=== PATIENT | male | born 1955 | race Caucasian/White ===

== ENCOUNTER 2018-10-14 09:57 | Observation (INO) ==
[2018-10-14] MEDS: NITROGLYCERIN 0.4 MG/TAB BTL SL PRN ×2 (10:18→10:27)
--- NOTE | 2018-10-14 10:23 | ERNOTE ---
Chest Pain/Cardiac HPI Date of Service: 10/14/18 Chief Complaint: Chest Pain Time Seen by Provider: 10/14/18 10:05 Source: patient Exam Limitations: no limitations Immunizations: IMMUNIZATION HX Immunizations Up to Date Yes History of Influenza Vaccine Yes Hx Pneumococcal Vaccination Yes Allergies/Adverse Reactions: Allergies morphine Allergy (Intermediate, Verified 10/14/18 13:02) Hives piroxicam [From Feldene] Adverse Reaction (Intermediate, Verified 10/14/18 13:02) Other keeps me awake Home Medications: HOME MEDICATIONS Multivitamin [Multivitamins] 1 ea PO DAILY 08/14/12 [Last Taken 02/23/18 05:30] Albuterol Sulfate [Proair Hfa] 1 - 2 puff IH Q4H PRN #1 inhaler 04/30/15 [Last Taken Unknown] Cetirizine HCl [Zyrtec] 10 mg PO DAILY PRN 10/01/17 [Last Taken 02/23/18 17:30] fenofibrate micronized 134 mg capsule 134 mg PO DAILY #90 cap 04/15/18 [Last Taken Unknown] pravastatin 10 mg tablet 10 mg PO DAILY #90 tab 04/15/18 [Last Taken Unknown] levothyroxine 50 mcg tablet 75 mcg PO DAILY #135 tab 08/19/18 [Last Taken Unknow n] lisinopril 10 mg tablet 10 mg PO DAILY #90 tab 08/19/18 [Last Taken Unknown] metformin 1,000 mg tablet 1,000 mg PO BID #90 tab 09/20/18 [Last Taken Unknown] metformin 500 mg tablet 250 mg PO BID #45 tab 09/20/18 [Last Taken Unknown] Albuterol Sulfate/Ipratropium [Duoneb 2.5-0.5MG/3ML Soln] 3 ml INHALATION PRN PRN 10/14/18 [Last Taken Unknown] Ibuprofen [Motrin] 600 mg PO BID PRN 10/14/18 [Last Taken Unknown] Aspirin [Aspirin EC] 81 mg PO DAILY #30 tablet.dr 10/15/18 [Last Taken Unknown] Glimepiride [Amaryl] 4 mg PO BID@0700,1700 #30 tab 10/15/18 [Last Taken Unknown] Metoprolol Succinate 25 mg PO DAILY #30 tab.er.24h 10/15/18 [Last Taken Unknown] Nitroglycerin [Nitrostat] 0.4 mg SUBLINGUAL Q5MIN PRN #10 btl 10/15/18 [Last Taken Unknown] Pain Score #1 Pain Score: 8 Narrative: The patient is a 63 year old male who presents for left anterior chest pressure which has been present since 0900. There are associated symptoms of lightheadedness and diaphoresis. The patient reports left anterior chest pressure, 8/10 There are no alleviating factors. There are no aggravating factors. Previous treatments have included: patient received Nitro x1 and Aspirin 81mg x4 via EMS. The past medical history includes: DM, HLD, hypothyroid, heart disease and osteoarthritis. The social history is negative. The patient has had no ill contacts. Patient states he was sitting at his computer at work when he developed left anterior chest pressure with radiation to left arm. Patient states that with the pain he also became diaphoretic with mild shortness of breath. Patient states that pressure had began to improve upon arrival of EMS. Nitro x1 was administered via EMS which patient reports aided with resolution of chest pressure. During exam patient reports pressure to be returned to left anterior chest, 8/10. Location: left chest Chest Pain Radiation: arms - left Activities at Onset: other - sitting at work station, denies increased stress Modifying Factors - Improves: Present: nitroglycerin Modifying Factors - Worsens: Present: nothing Nitro Today/Relief: 0.4 mg x 1, provided by EMS Aspirin Treatment Today: 81 mg x 4, provided by EMS Associated Symptoms: Present: dizziness, shortness of breath, diaphoresis. Absent: fever/chills, nausea, vomiting Prior Chest Pain/Cardiac Workup: Reports: prior chest pain, cardiac cath - 18 years ago Review of Systems - Review of Systems Constitutional: Present: no symptoms reported. Absent: fever, fatigue EYE: Present: no symptoms reported ENT: Present: no symptoms reported. Absent: ear pain, nasal drainage, sore throat Respiratory: Present: shortness of breath. Absent: cough Cardiology: Present: chest pain. Absent: edema Gastrointestinal/Abdominal: Present: no symptoms reported. Absent: nausea, vomiting, diarrhea, abdominal pain Genitourinary: Present: no symptoms reported. Absent: dysuria Musculoskeletal: Present: no symptoms reported. Absent: back pain Skin: Present: no symptoms reported. Absent: rash Neurological: Present: dizziness/light-headedness. Absent: numbness Endocrine: Present: no symptoms reported Hematologic/Lymphatic: Present: no symptoms reported Psych: Present: no symptoms reported All Other Systems: All systems neg except as marked Medical History (Last Reviewed 10/14/18 @ 10:17 by CHRISTIE San) Osteoarthritis (Chronic) Onset Date: Unknown Obesity (Chronic) Onset Date: Unknown Ischemic heart disease (Chronic) Onset Date: Unknown Hypothyroidism (Chronic) Onset Date: Unknown Hyperlipidemia (Chronic) Onset Date: Unknown Ganglion (Chronic) Onset Date: Unknown left index finger Foot injury (Chronic) Onset Date: Unknown Foot fracture (Acute) Onset Date: Unknown closed Diverticulitis (Chronic) Onset Date: Unknown Diabetes 1.5, managed as type 2 (Chronic) Onset Date: Unknown Colonic polyp (Chronic) Onset Date: ~07/2007 tubular adenoma X2 Chest pain (Chronic) Onset Date: Unknown Cerumen impaction (Chronic) Onset Date: Unknown Surgical History: Surgical History (Last Reviewed 10/14/18 @ 10:17 by CHRISTIE San) History of total knee arthroplasty (Resolved) Onset Date: ~05/16/13 07/26/13 [facility] Left;Right H/O hernia repair (Resolved) Onset Date: ~1977 right Inguinal hernia History of cardiac cath (Resolved) Onset Date: ~2005 [facility] Normal H/O colonoscopy (Resolved) Onset Date: ~2001 With Biopsy 08/13; 07 [facility] tubular adenoma x2 H/O colonoscopy (Resolved) Onset Date: ~03/18/12 Tinguely; scattered sigmoid diverticulosis. Recheck 10 years History of cervical spinal surgery (Resolved) Onset Date: ~03/2010 [facility] C5-C6 H/O knee surgery (Resolved) Onset Date: ~2002 1998 1992; Arthroscopic, Right Knee History of appendectomy (Resolved) Onset Date: ~1965 H/O coronary angiogram (Resolved) Onset Date: ~2005 [facility] Family History: Family History (Last Reviewed 10/14/18 @ 10:18 by CHRISTIE San) Father , age 73 Emphysema of lung Mother , age 52 Cancer Lung Diabetes Sister , age 55 Cancer Lung Diabetes Social History: Preferred Language Tajik Do you have any catholic or Yes: Jainism cultural preference? Smoking Status Never smoker Have you smoked in the past 12 No months Do you dip or chew tobacco No Abuse History No History of abuse Psych History No pertinent hx Alcohol Use occasionally Drug Use none (Last Updated 08/16/18 @ 15:33 by Paco Elizabeth MD) No Social History Section defined Physical Exam - Physical Exam General Appearance: Present: wd/wn, alert, no apparent distress Head Exam: Present: normal inspection Eye Exam: Normal inspection: bilateral Neck: Present: normal inspection, nontender. Absent: carotid bruit Respiratory: Present: no respiratory distress, normal breath sounds, no accessory muscle use, chest nontender, lungs clear Cardiovascular/Chest: Present: regular rate, rhythm, no murmur Peripheral Pulses: N=norm/S=strong/W=weak/B=bound/A=absent: Radial (R): Normal Gastrointestinal/Abdominal: Present: normal bowel sounds, nontender, nondistended, soft, no organomegaly Neurological Exam: Present: alert, oriented, normal mood/affect Skin Exam: Present: normal color, warm/dry Progress - Date and Time Seen: Date and Time: 10/13/18 Case discussed with . Patient will be admitted observation chest pain due to comorbid risk factors and persistent intermittent chest pain with diaphoresis and nausea upon onset. - Results and Orders Patient's Lab Results:: I have reviewed the patient's lab results. - Vital Signs Patient's Vital Signs:: I have reviewed the patient's vital signs. Vital Signs: Vital Signs 10/14/18 10:04 Temperature 35.9 C L Pulse Rate 72 Respiratory Rate 15 Blood Pressure 129/78 O2 Sat by Pulse Oximetry 96 - EKG EKG #1 EKG: NSR EKG read: Reviewed by me - X-Ray X-Ray #1 X-Ray: chest Interpretation: Reviewed by me X-ray Comments: X-RAY REPORT [id number] RAD/Chest PA & Lateral *~ Exam Date: 10/14/2018 10:12 Ordering Physician: Luisa SORIANO HISTORY: Chest Pain. Additional history from technologist: left arm pain and chest pressure started at 0900 today; history of heart cath TECHNIQUE: PA and lateral views of the chest were obtained. 2 images. COMPARISONS: 07/12/2018 FINDINGS: Chest PA Lateral * Hypoinflated lung volumes. Bibasilar linear opacities are noted. No significant vascular congestion suggested. No pneumothorax or pleural fluid collections. Cardiac silhouette within normal limits. Moderate tortuosity of the thoracic aorta noted, with overlying atherosclerotic vascular calcifications. Overall stable. Trachea is in normal position. Bones show degenerative changes of the spine. IMPRESSION: 1. Hypoventilatory changes, with bibasilar atelectasis. Potential underlying pneumonia would be difficult to exclude. Clinical correlation is advised. Consider imaging follow-up (e.g. 6-8 weeks). 2. Otherwise no definite acute findings are noted. Electronically signed by Torsten Martins M.D.. - Progress/Reassessment Chief Complaint: Chest Pain Departure Clinical Impression: Chest pain Qualifiers: Chest pain type: unspecified Qualified Code(s): R07.9 - Chest pain, unspecified - Departure Disposition: Still a patient Condition: Fair
[2018-10-14 10:28] LABS: Hemoglobin 12.7 gm/dL (13.5-18.0); Mean Cell Volume 87.5 fl (78-100); Mean Corpuscular Hgb Conc 34.3 g/dl (32-36); Mean Platelet Volume 8.9 fl (8-11.3); Neutrophil # 3.6 K/mm3 (1.3-6.0); Neutrophil % 64.6 % (42-75.0); Platelet Count 198 K/mm3 (150-450); Red Blood Count 4.23 M/mm3 (4.7-6.0); White Blood Count 5.6 K/mm3 (4.0-10.5)
[2018-10-14 10:38] LABS: Prothrombin Time (Patient) 9.9 Seconds (9.0-11.0)
[2018-10-14 10:44] LABS: ALT 38 U/L (19-67); AST 15 U/L (0-48); Albumin * 3.8 gm/dl (3.4-5.0); Alkaline Phosphatase * 97 U/L (50-170); BUN/Creatinine Ratio 21.3 (9.0-21.6); Bilirubin, Total 1.4 mg/dL (0.0-1.1); Blood Urea Nitrogen 19 mg/dL (6-23); Ca. Corrected For Albumin 8.6 mg/dL (8.4-10.2); Calcium * 8.8 mg/dL (7.9-10.9); Carbon Dioxide 23.2 mmol/L (24-32.6); Chloride 103 mmol/L (97-106); Glucose * 207 mg/dL (70-110); INR 0.99 INR (0.90-1.10); Partial Thrombolplastin Time 26.5 Seconds (24-32); Potassium 4.2 mmol/L (3.4-4.6); Sodium 137 mmol/L (132-142); Total Protein 7.1 gm/dL (6.2-8.2)
[2018-10-14 10:45] LABS: Troponin I Less than 0.017 ng/mL (0.00-0.10)
[2018-10-14] MEDS ORDERED: HYDROmorphone HCL 1 MG/ML DISP.SYRIN IV ONE (11:21)
--- NOTE | 2018-10-14 12:58 | HP ---
Chief Complaint - Chief Complaint Date of Service: 10/14/18 Time of Service: 12:52 Chief Complaint: chest pain History of Present Illness: Bertrand Bonner, is a 63-year-old white male with past medical history of diabetes mellitus type 2, hyperlipidemia, hypothyroidism, who was admitted on 10/14/2018 for chest pain. 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 He described the pain as someone sitting on his chest. It lasted for about 15 minutes and by the time he got to the emergency room it started dissipating. He got nitroglycerin and aspirin in the emergency room. His first set of troponin was negative at less done 0.017 and his first EKG showed normal sinus rate him with no ST T wave changes. His chest x-ray showed bibasilar atelectasis but potential underlying pneumonia cannot be ruled out. The patient hasn't had no symptoms since and symptoms of respiratory tract problems and his white blood cell count is normal. The patient was then admitted for further observation on under our chest pain protocol. Medical History (Last Reviewed 10/14/18 @ 13:00 by Annabel Roy RN) Osteoarthritis (Chronic) Onset Date: Unknown Obesity (Chronic) Onset Date: Unknown Ischemic heart disease (Chronic) Onset Date: Unknown Hypothyroidism (Chronic) Onset Date: Unknown Hyperlipidemia (Chronic) Onset Date: Unknown Ganglion (Chronic) Onset Date: Unknown left index finger Foot injury (Chronic) Onset Date: Unknown Foot fracture (Acute) Onset Date: Unknown closed Diverticulitis (Chronic) Onset Date: Unknown Diabetes 1.5, managed as type 2 (Chronic) Onset Date: Unknown Colonic polyp (Chronic) Onset Date: ~07/2007 tubular adenoma X2 Chest pain (Acute) Onset Date: Unknown Cerumen impaction (Chronic) Onset Date: Unknown Surgical History: Surgical History (Last Reviewed 10/14/18 @ 13:00 by Annabel Roy RN) History of total knee arthroplasty (Resolved) Onset Date: ~05/16/13 07/26/13 [facility] Left;Right H/O hernia repair (Resolved) Onset Date: ~1977 right Inguinal hernia History of cardiac cath (Resolved) Onset Date: ~2005 [facility] Normal H/O colonoscopy (Resolved) Onset Date: ~2001 With Biopsy 12/07; '07 [facility] tubular adenoma x2 H/O colonoscopy (Resolved) Onset Date: ~03/18/12 Tinguely; scattered sigmoid diverticulosis. Recheck 10 years History of cervical spinal surgery (Resolved) Onset Date: ~03/2010 [facility] C5-C6 H/O knee surgery (Resolved) Onset Date: ~2002 1998 1992; Arthroscopic, Right Knee History of appendectomy (Resolved) Onset Date: ~1965 H/O coronary angiogram (Resolved) Onset Date: ~2005 [facility] Family History: Family History (Last Reviewed 10/14/18 @ 13:02 by Annabel Roy RN) Father , age 73 Emphysema of lung Mother , age 52 Diabetes Cancer Lung Sister , age 55 Diabetes Cancer Lung Grandfather Myocardial infarction Grandmother Diabetes Social History: Preferred Language Maori Do you have any sabianist or Yes: Restoration cultural preference? Smoking Status Never smoker Have you smoked in the past 12 No months Do you dip or chew tobacco No Abuse History No History of abuse Psych History No pertinent hx Alcohol Use occasionally Drug Use none (Last Updated 08/16/18 @ 15:33 by Paco Elizabeth MD) No Social History Section defined Review Of Systems (GEN) - Review of Systems Generalized/Overall Review: Absent: Weakness, Chills, Fever EENTM: Absent: Blurred Vision Respiratory: Absent: Cough, Shortness of Breath, Orthopnea, Wheezing Cardiac: Present: Chest Pain. Absent: Edema, Palpitations Abdominal: Absent: Nausea, Vomiting Genitourinary: Absent: Urgency, Frequency Musculoskeletal: Absent: Joint Pain Neurological: Absent: Headache, Tingling, Weakness Skin: Absent: Rash, Bruising Endocrine: Absent: Intolerance to Cold, Intolerance to Heat Immunizations: IMMUNIZATION HX Immunizations Up to Date Yes History of Influenza Vaccine Yes Hx Pneumococcal Vaccination Yes Allergies/Adverse Reactions: Allergies Allergy/AdvReac Type Severity Reaction Status Date / Time morphine Allergy Intermediate Hives Verified 10/14/18 13:02 piroxicam [From Feldene] AdvReac Intermediate Other Verified 10/14/18 13:02 Home Medications: HOME MEDICATIONS Multivitamin [Multivitamins] 1 ea PO DAILY 08/14/12 [Last Taken 02/23/18 05:30] Albuterol Sulfate [Proair Hfa] 1 - 2 puff IH Q4H PRN #1 inhaler 04/30/15 [Last Taken Unknown] Cetirizine HCl [Zyrtec] 10 mg PO DAILY PRN 10/01/17 [Last Taken 02/23/18 17:30] fenofibrate micronized 134 mg capsule 134 mg PO DAILY #90 cap 04/15/18 [Last Taken Unknown] pravastatin 10 mg tablet 10 mg PO DAILY #90 tab 04/15/18 [Last Taken Unknown] levothyroxine 50 mcg tablet 75 mcg PO DAILY #135 tab 08/19/18 [Last Taken Unknown] lisinopril 10 mg tablet 10 mg PO DAILY #90 tab 08/19/18 [Last Taken Unknown] metformin 1,000 mg tablet 1,000 mg PO BID #90 tab 09/20/18 [Last Taken Unknown] metformin 500 mg tablet 250 mg PO BID #45 tab 09/20/18 [Last Taken Unknown] Albuterol Sulfate/Ipratropium [Duoneb 2.5-0.5MG/3ML Soln] 3 ml INHALATION PRN PRN 10/14/18 [Last Taken Unknown] Glimepiride [Amaryl] 8 mg PO BID@0700,1700 10/14/18 [Last Taken Unknown] Ibuprofen [Motrin] 600 mg PO BID PRN 10/14/18 [Last Taken Unknown] Exam - Exam Vital Signs: Vital Signs - Last Taken Temp 36.4 C 10/14/18 12:35 Pulse 64 10/14/18 12:35 Resp 16 10/14/18 12:35 BP 119/70 10/14/18 12:35 Pulse Ox 95 10/14/18 12:35 Constitutional: Present: Alert, Oriented x3, Cooperative ENT Exam: Present: hearing grossly normal Eye Exam: bilateral eye: normal inspection, PERRL, EOMI Neck: Present: supple Respiratory: Present: normal breath sounds, No rales, No wheezing Cardiovascular/Chest: Present: regular rate, rhythm, no JVD, no murmur Abdomen: Present: Normal bowel sounds, soft, nontender, nondistended Extremity: Present: no pedal edema, no calf tenderness Diagnostic Studies: Abnormal Lab Results 10/14/18 10/14/18 Range/Units 10:24 10:24 RBC 4.23 L (4.7-6.0) M/mm3 Hgb 12.7 L (13.5-18.0) gm/dL Hct 37.0 L (42.0-52.0) % Lymphocytes # 1.33 L (1.5-3.5) k/mm3 Carbon Dioxide 23.2 L (24-32.6) mmol/L Anion Gap 15.0 H (6.8-13.8) mmol/L Random Glucose 207 H (70-110) mg/dL Total Bilirubin 1.4 H (0.0-1.1) mg/dL Laboratory Results WBC 5.6 K/mm3 (4.0-10.5) 10/14/18 10:24 RBC 4.23 M/mm3 (4.7-6.0) L 10/14/18 10:24 Hgb 12.7 gm/dL (13.5-18.0) L 10/14/18 10:24 Hct 37.0 % (42.0-52.0) L 10/14/18 10:24 MCV 87.5 fl (78-100) 10/14/18 10:24 MCH 30.0 pg (27-31) 10/14/18 10:24 MCHC 34.3 g/dl (32-36) 10/14/18 10:24 RDW 14.0 % (11.5-14.0) 10/14/18 10:24 Plt Count 198 K/mm3 (150-450) 10/14/18 10:24 MPV 8.9 fl (8-11.3) 10/14/18 10:24 Immature Gran % (Auto) 0.40 % (0.001-0.429) 10/14/18 10:24 Immature Gran # (Auto) 0.02 K/mm3 (0.000-0.0310) 10/14/18 10:24 Neutrophils % 64.6 % (42-75.0) 10/14/18 10:24 Lymphocytes % 23.8 % (20-51) 10/14/18 10:24 Monocytes % 8.6 % (0.0-9) 10/14/18 10:24 Eosinophils % 2.1 % (0.0-3.0) 10/14/18 10:24 Basophils % 0.5 % (0.0-1.0) 10/14/18 10:24 Nucleated RBC % 0.0 k/mm3 (0-1) 10/14/18 10:24 Neutrophils # 3.6 K/mm3 (1.3-6.0) 10/14/18 10:24 Lymphocytes # 1.33 k/mm3 (1.5-3.5) L 10/14/18 10:24 Monocytes # 0.5 k/mm3 (0.0-1.0) 10/14/18 10:24 Eosinophils # 0.1 k/mm3 (0.0-0.7) 10/14/18 10:24 Absolute Basophils 0.0 k/mm3 (0.0-0.1) 10/14/18 10:24 PT 9.9 Seconds (9.0-11.0) 10/14/18 10:24 INR (Anticoag Therapy) 0.99 INR (0.90-1.10) 10/14/18 10:24 PTT (Mike) 26.5 Seconds (24-32) 10/14/18 10:24 Sodium 137 mmol/L (132-142) 10/14/18 10:24 Plasma Sodium 139 mmol/L (130-142) 10/14/18 10:24 Potassium 4.2 mmol/L (3.4-4.6) 10/14/18 10:24 Chloride 103 mmol/L (97-106) 10/14/18 10:24 Carbon Dioxide 23.2 mmol/L (24-32.6) L 10/14/18 10:24 Anion Gap 15.0 mmol/L (6.8-13.8) H 10/14/18 10:24 BUN 19 mg/dL (6-23) 10/14/18 10:24 Creatinine 0.89 mg/dL (0.4-1.4) 10/14/18 10:24 Est GFR (Non-Af Amer) 91 mL/min (60-130) 10/14/18 10:24 BUN/Creatinine Ratio 21.3 (9.0-21.6) 10/14/18 10:24 Random Glucose 207 mg/dL (70-110) H 10/14/18 10:24 Calcium 8.8 mg/dL (7.9-10.9) 10/14/18 10:24 Calcium Adj for Albumin 8.6 mg/dL (8.4-10.2) 10/14/18 10:24 Total Bilirubin 1.4 mg/dL (0.0-1.1) H 10/14/18 10:24 AST 15 U/L (0-48) 10/14/18 10:24 ALT 38 U/L (19-67) 10/14/18 10:24 Alkaline Phosphatase 97 U/L (50-170) 10/14/18 10:24 Troponin I Less than 0.017 ng/mL (0.00-0.10) 10/14/18 10:24 Total Protein 7.1 gm/dL (6.2-8.2) 10/14/18 10:24 Albumin 3.8 gm/dl (3.4-5.0) 10/14/18 10:24 Assessment/Plan - Narrative Narrative: Will continue with patient's home medications. - Assessment/Plan (1) Chest pain Assessment: will do serial EKG and troponin. If AMI is ruled out, we will discharge him . he just had a pharmacologic stress test in February or March of last year and there was no reversible ischemia. Problem: Acute (2) Hypothyroidism Problem: Chronic Qualifiers: Hypothyroidism type: acquired Qualified Code(s): E03.9 - Hypothyroidism, unspecified (3) Hyperlipidemia Problem: Chronic Qualifiers: Hyperlipidemia type: mixed hyperlipidemia Qualified Code(s): E78.2 - Mixed hyperlipidemia (4) Diabetes mellitus type 2 in obese Problem: Chronic
[2018-10-14] MEDS ORDERED: ALBUTEROL SULFATE 2.5 MG/0.5 ML VIAL.NEB IH PRN (13:11)
[2018-10-14] MEDS ORDERED: LORATADINE 10 MG TABLET PO PRN (13:11)
[2018-10-14] MEDS ORDERED: ALBUTEROL SULFATE/IPRATROPIUM 3 ML NEBU IH PRN (13:11)
[2018-10-14] MEDS: GLIMEPIRIDE 4 MG TABLET PO SCH (16:56)
[2018-10-14] MEDS: metFORMIN HCL 500 MG TABLET PO SCH (16:56)
[2018-10-14] MEDS ORDERED: SIMVASTATIN 5 MG TABLET PO SCH (21:00)
[2018-10-15] MEDS: GLIMEPIRIDE 4 MG TABLET PO SCH (06:43)
[2018-10-15] MEDS ORDERED: LEVOTHYROXINE SODIUM 50 MCG TABLET PO SCH (07:00)
[2018-10-15] MEDS: metFORMIN HCL 500 MG TABLET PO SCH (08:30)
[2018-10-15] MEDS ORDERED: LISINOPRIL 10 MG TABLET PO SCH (09:00)
[2018-10-15] MEDS ORDERED: FENOFIBRATE,MICRONIZED 134 MG CAPSULE PO SCH (09:00)
--- NOTE | 2018-10-15 10:57 | DS ---
(1) Chest pain Diagnosis(s): AMI ruled out Problem: Resolved (2) Hypothyroidism Problem: Chronic Qualifiers: Hypothyroidism type: acquired Qualified Code(s): E03.9 - Hypothyroidism, unspecified (3) Hyperlipidemia Problem: Chronic Qualifiers: Hyperlipidemia type: mixed hyperlipidemia Qualified Code(s): E78.2 - Mixed hyperlipidemia (4) Diabetes mellitus type 2 in obese Problem: Chronic (5) Neck pain on left side Problem: Acute Description of Stay: Bertrand Bonner, is a 63-year-old white male with past medical history of diabetes mellitus type 2, hyperlipidemia, hypothyroidism, who was admitted on 10/14/2018 for chest pain. 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 He described the pain as someone sitting on his chest. It lasted for about 15 minutes and by the time he got to the emergency room it started dissipating. He got nitroglycerin and aspirin in the emergency room. His first set of troponin was negative at less done 0.017 and his first EKG showed normal sinus rate him with no ST T wave changes. His chest x-ray showed bibasilar atelectasis but potential underlying pneumonia cannot be ruled out. The patient hasn't had no symptoms since and symptoms of respiratory tract problems and his white blood cell count is normal. The patient was then admitted for further observation on under our chest pain protocol. His 2 more sets of EKG and troponing were normal. He is chest pain free. Will refer him to cardiology as outpatient for his recurrent chest pain. He had one in 02/2018 and stress showed no reversible ischemia with probable septal hypokinesis. Will also do cervical and left shoulder as he has spasma nad pain running down his neck to shoulder to his back. Procedures Performed: none Results and Findings: Lab Pending Results 10/14/18 10:24: WBC 5.6, RBC 4.23 L, Hgb 12.7 L, Hct 37.0 L, MCV 87.5, MCH 30.0, MCHC 34.3, RDW 14.0, Plt Count 198, MPV 8.9, Immature Gran % (Auto) 0.40, Immature Gran # (Auto) 0.02, Neutrophils % 64.6, Lymphocytes % 23.8, Monocytes % 8.6, Eosinophils % 2.1, Basophils % 0.5, Nucleated RBC % 0.0, Neutrophils # 3.6, Lymphocytes # 1.33 L, Monocytes # 0.5, Eosinophils # 0.1, Absolute Basophils 0.0 10/14/18 10:24: PT 9.9, INR (Anticoag Therapy) 0.99, PTT ([place]) 26.5 10/14/18 10:24: Sodium 137, Plasma Sodium 139, Potassium 4.2, Chloride 103, Carbon Dioxide 23.2 L, Anion Gap 15.0 H, BUN 19, Creatinine 0.89, Est GFR (Non- Af Amer) 91, BUN/Creatinine Ratio 21.3, Random Glucose 207 H, Calcium 8.8, Calcium Adj for Albumin 8.6, Total Bilirubin 1.4 H, AST 15, ALT 38, Alkaline Phosphatase 97, Troponin I Less than 0.017, Total Protein 7.1, Albumin 3.8 10/14/18 16:30: Troponin I Less than 0.017 10/15/18 07:10: Troponin I Less than 0.017 Discharge Location: Home Disposition: Home self-care Condition: Fair Discharge Activity: Activity as tolerated Discharge Diet: Consistent carbs Referrals: Paco Elizabeth MD [Primary Care Provider] - Additional Patient Instructions (free text): Follow up with PCP in 2 weeks. Refer to cardiology for recurrent chest pain. Schedule a cervical xray and left shoulder xray as outpatient. Prescriptions (Any new or edited meds): Aspirin [Aspirin EC] 81 mg PO DAILY #30 tablet. Metoprolol Succinate 25 mg PO DAILY #30 tab.er.24h Complete Home Medications List: Complete Home Medication List: Multivitamin [Multivitamins] 1 ea PO DAILY 08/14/12 Albuterol Sulfate [Proair Hfa] 1 - 2 puff IH Q4H PRN #1 inhaler 04/30/15 Cetirizine HCl [Zyrtec] 10 mg PO DAILY PRN 10/01/17 fenofibrate micronized 134 mg capsule 134 mg PO DAILY #90 cap 04/15/18 pravastatin 10 mg tablet 10 mg PO DAILY #90 tab 04/15/18 levothyroxine 50 mcg tablet 75 mcg PO DAILY #135 tab 08/19/18 lisinopril 10 mg tablet 10 mg PO DAILY #90 tab 08/19/18 metformin 1,000 mg tablet 1,000 mg PO BID #90 tab 09/20/18 metformin 500 mg tablet 250 mg PO BID #45 tab 09/20/18 Albuterol Sulfate/Ipratropium [Duoneb 2.5-0.5MG/3ML Soln] 3 ml INHALATION PRN PRN 10/14/18 Glimepiride [Amaryl] 8 mg PO BID@0700,1700 10/14/18 Ibuprofen [Motrin] 600 mg PO BID PRN 10/14/18 Aspirin [Aspirin EC] 81 mg PO DAILY #30 tablet.dr 10/15/18 Metoprolol Succinate 25 mg PO DAILY #30 tab.er.24h 10/15/18 Amb Orders for Discharge: Cervical Complete Min 4 Views* Time Frame: 1 Week, Location: Radiology Shoulder 3 or More Views LT * Time Frame: 1 Week, Location: Radiology
[2018-10-15 14:12] VITALS: BP 143/75
[2018-10-16] MEDS ORDERED: LEVOTHYROXINE SODIUM 75 MCG TABLET PO SCH (07:00)
== END 2018-10-15 14:00 | disposition home or self-care (01) ==
LOC: MS 09:57 → ER 09:57 → MS 12:01
PROVIDERS: ADMIT Internal Medicine; ATTEND Internal Medicine
DX: R07.9 Chest pain, unspecified; M54.2 Cervicalgia; E11.9 Type 2 diabetes mellitus without complications; E03.9 Hypothyroidism, unspecified; E78.2 Mixed hyperlipidemia
CPT/HCPCS: 36415; 71020; 71046; 80053; 84484; 85025; 85610; 85730; 93005; 94640; 94660; 94664; 96374; 99285; G0378